=== PATIENT | female | born 1945 | race Caucasian/White ===

== ENCOUNTER 2025-04-20 01:25 | Emergency (ER) | payer MEDICARE, MEDICAID, SELFPAY ==
[2025-04-20 01:27] VITALS: BMI 22.2
[2025-04-20 01:43] VITALS: BP 146/93; PULSE 89; RESP 19; TEMP 36.6; O2SAT 98
--- NOTE | 2025-04-20 01:53 | EDNOTE_ITS ---
ED Back Injury Pain RME/HPI General Chief Complaint: Back Pain/Injury Stated Complaint: LOWER BACK PAIN, DENIES INJURY Time Seen by Provider: 04/20/25 01:52 Arrival date/time: 04/20/25 01:25 RME / HPI RME / HPI Narrative: This section includes all my notes and documentations, including HPI, PE, and ED course. Damián Loyd MD HPI: 79yo female here with right lower back pain that radiates down her right leg for the last several days. No paralysis. No numbness or tingling. No saddle numbness. No loss of control of bladder or bowels. No recent injury. No other complaints reported. ROS: All negative except as documented in HPI. Physical Exam: General: Alert and oriented. In obvious pain. Eyes: Conjunctivae and lids clear. ENT: No nasal congestion. Neck: Supple. Lungs: No respiratory distress. Abdomen: Soft and nontender. Normal bowel sounds. No distension. No rebound or guarding. Back: Equivocal lumbar spinal tenderness. Skin: Warm and dry. Neuro: Alert and oriented X 3. No peripheral motor deficits. I reviewed all diagnostic test results. My review of the CT lumbar report is no acute fracture. Urine tests unremarkable. At this point, diagnoses include lumbar radiculopathy. Treatment here included Morphine and Zofran. Significant improvement noted. Recommended more outpatient care. Based on my best medical judgment, made decision no further evaluation or treatment indicated at this time. Patient understands and agrees to the discharge instructions customized and printed, see below. Discharge Instructions from Dr. Loyd: --After evaluation, we are dealing with Sciatica (same as Lumbar Radiculopathy or Spinal Stenosis) where pinched nerve(s) is causing your symptoms. --This condition is difficult because normal pain medications don?t work very well on nerve pain. Nerve pain can be very painful. --Despite the pain, try to resume your normal chores and activities. Because inactivity is terrible for this condition. And activity won?t make your condition worse. Use a cane of stick in your left hand to help stand and walk. --Use Tylenol with codeine and lidocaine patches as needed. Don't expect the pain to go away completely, hoping to take the edge off. --When resting and sleeping, try left sided position (with your knees to your chest and bending forward). This can take some pressure off the nerve and help your pain. --Apply ice or heat if helpful. --See a private doctor (outside the ER) on 04/21/2025 for further care. Ask to help you get more care not available here in the ER. Such as MRI imaging, physical therapy, and referrals to see specialists. Some choose to have surgery for this condition. But you need to have MRI imaging to confirm the diagnosis and assess the severity to get the best treatments. --Seek immediate medical care with paralysis in your foot, losing control of your bladder or bowels, saddle numbness (anal numbness), or with any concerns. Damián Loyd MD Related Data Previous Rx's ?Medication ?Instructions ?Recorded acetaminophen 300 mg-codeine 30 mg 2 tab PO Q8H PRN pa in #20 tabs 04/20/25 tablet lidocaine 5 % topical patch 2 patch topical QDAY PRN p ain #30 04/20/25 (Lidoderm) ea Allergies Allergy/AdvReac Type Severity Reaction Status Date / Time No Known Allergies Allergy Verified 04/20/25 01:27 Review of Systems Review of Systems Systems Reviewed: All systems reviewed, normal except as documented Past Medical History Social History SMOKING STATUS: Former smoker ED Exam Narrative Physical exam: As noted in HPI. Course Quality Measures none Orders Category Date Time Status CT lumbar spine wo con Stat Exams 04/20/25 01:53 Taken UA, C/S IF [Urinalysis, C/S if Indicated] Stat Lab 04/20/25 02:00 Completed Morphine Inj Med 04/20/25 01:53 Discontinued 5 mg IM X1 ONE Ondansetron Odt [Zofran Odt] Med 04/20/25 01:53 Discontinued 4 mg PO X1 ONE Vital Signs Vital signs: Vital Signs Temperature 97.9 F 04/20/25 01:43 Pulse Rate 89 04/20/25 01:43 Respiratory Rate 19 04/20/25 01:43 Blood Pressure 146/93 H 04/20/25 01:43 Pulse Oximetry (%) 98 04/20/25 01:43 Oxygen Delivery Method Room Air 04/20/25 01:43 Back Pain / Injury Patient data External records reviewed:: [facility] previous records (Per chart review, patient has no previous ED visits or admissions to this facility.) Clinical information provided by:: patient Social determinants that could affect healthcare access:: none Patient has the following chronic illnesses:: none How is presenting disease/condition affected by chronic disease/condition?: no chronic disease Evaluation data The following diagnostics were reviewed and interpreted by me:: lab results and radiology exam(s) Lab and/or radiology exams considered but not ordered:: none Interpretation Summary: I reviewed all diagnostic test results. My review of the CT lumbar report is no acute fracture. Urine tests unremarkable. Medications / Prescriptions Medications or Prescriptions considered but not ordered:: none Medication administrations:: Medication Administration History Discontinued Medications Morphine Sulfate (Morphine Sulf Inj 10 Mg/Ml Vial) 5 mg IM X1 ONE Stop: 04/20/25 01:54 Last Admin: 04/20/25 02:04 Dose: 5 mg Documented By: ANTONIA Ondansetron HCl (Ondansetron Odt 4 Mg Tabrap) 4 mg PO X1 ONE; Protocol Stop: 04/20/25 01:54 Last Admin: 04/20/25 02:05 Dose: 4 mg Documented By: ANTONIA Morphine, Zofran Consultations Consultation(s) initiated? (list below): No Diagnosis Differential diagnosis back pain/injury: lumbar radiculopathy, sciatica and strain of lumbar region Most likely diagnosis given after review of the tests above:: Lumbar radiculopathy Admission Indicated Admission indicated?: not indicated Explain why admission is indicated or not indicated:: With significant improvement and no condition needing emergent intervention, there was no indication for admission. Admission Request Was there a request for admission?: No Disposition Plan Disposition Plan: Discharge Discharge Attestation Discharge Attestation: The patient and all family members were given an opportunity to ask questions and understood the discharge instructions. Discharge instructions specifically effects, indications for sooner follow up or return to the emergency department, and the expected course of current diagnosis. Patient condition: Stable Discharge Plan Plan Patient Disposition: HOME (Self Care) Prescriptions/Referrals Prescriptions/Med Rec: New acetaminophen-codeine 300-30 mg tablet 2 tab PO Q8H MDD 6 PRN (Reason: pain) Qty: 20 0RF lidocaine [Lidoderm] 5 % adhesive patch,medicated 2 patch topical QDAY PRN (Reason: pain) Qty: 30 0RF Rx Instructions: leave on most painful area for up to 12 hrs Referrals: Franklin Coronado MD [Primary Care Provider] - In 1 week Problem List Clinical Impression: Lumbar radiculopathy Patient/Caregiver Discharge Instructions Discharge Activity: activity as tolerated Education Materials: ED Sciatica Additional Instructions: Discharge Instructions from Dr. Loyd: --After evaluation, we are dealing with Sciatica (same as Lumbar Radiculopathy or Spinal Stenosis) where pinched nerve(s) is causing your symptoms.? --This condition is difficult because normal pain medications don?t work very well on nerve pain. Nerve pain can be very painful. --Despite the pain, try to resume your normal chores and activities.? Because inactivity is terrible for this condition.? And activity won?t make your condition worse.? Use a cane of stick in your left hand to help stand and walk.? --Use Tylenol with codeine and lidocaine patches as needed.? Don't expect the pain to go away completely, hoping to take the edge off.?? --When resting and sleeping, try left sided position (with your knees to your chest and bending forward).? This can take some pressure off the nerve and help your pain. --Apply ice or heat if helpful. --See a private doctor (outside the ER) on 04/21/2025 for further care. Ask to help you get more care not available here in the ER.? Such as MRI imaging, physical therapy, and referrals to see specialists.? Some choose to have surgery for this condition. But you need to have MRI imaging to confirm the diagnosis and assess the severity to get the best treatments. --Seek immediate medical care with paralysis in your foot, losing control of your bladder or bowels, saddle numbness (anal numbness), or with any concerns.?? Print Language: Pakistani Stand Alone Forms: [facility] Award Info., Patient Portal Info Letter
--- NOTE | 2025-04-20 01:53 | XR_ITS ---
Examination: CT lumbar spine, without contrast. 2-D sagittal reconstructions. 2-D coronal reconstructions. 3-D reconstructions. Date and time of exam:April 20, 2025 at 0342 hours INDICATION: Low back pain radiating down the right leg beginning 2015 more severe this week CTDI: vol (mGy):14.9 DLP: (mGycm):397 Technique: Multiple 1.25 mm axial sections of the lumbar spine without intravenous contrast have been obtained. 2-D sagittal and coronal reconstructions have been obtained. 3-D reconstructions have been obtained. Low dose protocols were performed. One or more of the following dose reduction techniques were used; automated exposure control, adjustment of the mA and/or KV according to patient size, use of iterative reconstruction technique. Findings: Severe osteopenia. Advanced degenerative disc disease L3-L4, L4-L5 No lumbar vertebral body compression fracture L5-S1 2 mm central lumbar disc bulge L4-L5 small right foraminal disc bulge not ganglionic compression L3-L4 no disc protrusion L2-L3 no disc protrusion L1-L2 no disc protrusion IMPRESSION: Advanced degenerative disc disease L3-L4, L4-L5 Consider MRI lumbar spine without contrast follow-up will best assess for extent of a soft tissue spinal stenosis
[2025-04-20] MEDS: MORPHINE SULF INJ 10 MG/ML VIAL 5 MG IM (02:04)
[2025-04-20] MEDS: ONDANSETRON ODT 4 MG TABRAP PO (02:05)
[2025-04-20 02:17] LABS: Collection Type, Urine Clean Catch
[2025-04-20 02:27] LABS: Bacteria,Urine Rare; Bilirubin,Urine Negative (Negative); Blood,Urine Trace (Negative); Clarity,Urine Clear (Clear/Hazy); Color,Urine Lt-Yellow (Lt Yel-Yel); Culture Indicated,Urine Not Indicated; Glucose, Urine Negative (Negative); Hyaline Casts,Urine < 1 /hpf (0-1); Ketones,Urine Negative (Negative); Leukocyte Esterase,Urine Positive (Negative); Nitrite,Urine Negative (Negative); PH,Urine 6.5 (5.0-7.0); Protein,Urine Negative (Neg - Trace); RBC,Urine 4 /hpf (0-3); Specific Gravity,Urine 1.014 (1.001-1.035); Squamous Epithelial Cell,Urine 4 /hpf (0-5); Urobilinogen,Urine Negative mg/dL (0.0-1.0); WBC,Urine 2 /hpf (0-5)
--- NOTE | 2025-04-20 04:34 | PRELIM_ITS ---
CT SCAN OF THE LUMBAR SPINE. April 20, 2025 at 0342 hours Clinical History: Right low back pain radiating into right leg Technique: Axial sections with sagittal, coronal and 3D reformats through the lumbar spine are obtained without intravenous contrast. Radiation Dose: Total exam DLP 401 mGy/cm. Comparison: No prior study is available for comparison. Findings: There is no evidence of acute fracture or subluxation. There is dextroscoliosis of the lumbar spine. There is grade I anterolisthesis of L2 over L3. The vertebral body heights are within normal limits. Degenerative changes are noted in the form of multilevel marginal osteophytes, decreased disc spaces, vacuum phenomenon and facet arthropathy. The pre and paravertebral soft tissues are unremarkable. The sacroiliac joints are intact to the extent visualized. There is a 3.8 x 2.5 cm left adrenal nodule (3 HU), which may represent an adenoma. There is a possible calculus in the gallbladder, incompletely imaged. T12-L1: The disc height is within normal limits. There is no significant disc herniation, central canal or neural foraminal narrowing. The facet joints and ligamentum flavum are within normal limits. L1-L2: There is mild disc bulge causing mild spinal canal and bilateral neural foraminal narrowing. L2-L3: There is grade I anterolisthesis of L2 over L3. There is diffuse disc bulge causing moderate right spinal canal, moderate right and mild left neural foraminal narrowing. L3-L4 and L4-L5: There is diffuse disc bulge causing moderate spinal canal, moderate left and mild right neural foraminal narrowing. L5-S1: There is mild disc bulge without significant spinal canal narrowing. There is mild right neural foraminal narrowing. IMPRESSION: 1. No focal bony destructive pathology identified. 2. Lumbar spondylosis with multilevel degenerative disc disease, predominantly at L3-L4 and L4-L5 as described. 3. Other findings as described above. Suggest clinical correlation and follow up accordingly. Report Electronically Signed By: Gilles Jackson 04/20/2025 4:33:07 AM [EST]
[2025-04-20 04:50] VITALS: BP 141/67; PULSE 81; RESP 18; TEMP 36.7; O2SAT 98
== END 2025-04-20 04:51 | disposition home or self-care (01) ==
PROVIDERS: Emergency Provider Emergency Medicine; PCP Family Medicine
DX: M54.16 Radiculopathy, lumbar region (principal)
CPT/HCPCS: 72131; 81001; 96372; 99283; J2270; Q0162